=== PATIENT | female | born 1940 | race Caucasian/White ===

== ENCOUNTER → 2020-05-23 15:05 | Outpatient (CLI) | payer MEDICARE, OTHER, SELFPAY ==
--- NOTE | 2020-05-23 15:15 | XR_ITS ---
PROCEDURE: XR WRIST RT MIN 3V CLINICAL INDICATION: RT wrist Pain COMPARISON: No exams were available for comparison FINDINGS: No fracture or dislocation. No lytic or blastic change. There is normal mineralization. 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 Minimal hypertrophic change noted along the dorsal aspect of the distal radius Other findings:None. IMPRESSION: No acute findings. Dictated by: Hollis Campos MD 05/23/2020 15:47 Hollis Campos MD in [place] 05/23/2020 15:47
== END ==
PROVIDERS: PCP Internal Medicine; Visit Provider Orthopaedic Surgery
DX: M25.531 Pain in right wrist (principal)
CPT/HCPCS: 73110